=== PATIENT | female | born 2000 | race Caucasian/White ===

== ENCOUNTER 2019-02-06 13:04 | Emergency (ER) | payer BC ==
[2019-02-06 13:22] VITALS: BP 128/74
[2019-02-06] MEDS ORDERED: Acetaminophen TAB* 325 MG PO ONE (13:39)
--- NOTE | 2019-02-06 13:39 | UC ---
UC General HPI - HPI Summary HPI Summary: PT IS C/O A HEADACHE, SORE THROAT AND FEVER SINCE LAST NIGHT. - History of Current Complaint Chief Complaint: UCRespiratory Stated Complaint: FEVER, SINUS PRESSURE, HEADACHE Time Seen by Provider: 02/06/19 13:32 Hx Obtained From: Patient Hx Last Menstrual Period: "last month"; on bcp Onset/Duration: Gradual Onset Timing: Constant Pain Intensity: 6 Associated Signs & Symptoms: Negative: Abdominal Pain, Cough, Diarrhea, Nausea, SOB, Vomiting - Allergy/Home Medications Allergies/Adverse Reactions: Allergies Allergy/AdvReac Type Severity Reaction Status Date / Time No Known Allergies Allergy Verified 02/06/19 13:16 Home Medications: Home Medications Norethindrone-E.estradiol-Iron [Blisovi 24 Fe Tablet] 1 tab DAILY 02/06/19 [ History Confirmed 02/06/19] PMH/Surg Hx/FS Hx/Imm Hx Previously Healthy: Yes - Surgical History Surgical History: None - Family History Known Family History: Positive: Non-Contributory - Social History Occupation: Student Lives: Dormitory/Roommates Alcohol Use: Rare Substance Use Type: Marijuana Smoking Status (MU): Never Smoked Tobacco - Immunization History Most Recent Tetanus Shot: UTD Review of Systems All Other Systems Reviewed And Are Negative: Yes Constitutional: Positive: Fever ENT: Positive: Sore Throat Neurological: Positive: Headache Physical Exam Triage Information Reviewed: Yes Appearance: Well-Appearing Vital Signs: Initial Vital Signs Temp 99.5 F 02/06/19 13:17 Pulse 95 02/06/19 13:17 Resp 16 02/06/19 13:17 BP 128/74 02/06/19 13:17 Pulse Ox 100 02/06/19 13:17 Vital Signs Reviewed: Yes Eyes: Positive: Conjunctiva Clear ENT: Positive: Pharyngeal erythema, TMs normal, Uvula midline. Negative: Nasal congestion, Nasal drainage, Trismus, Muffled voice, Hoarse voice Neck: Positive: Supple, Nontender, Enlarged Nodes @ - Peritonsilar Respiratory: Positive: No respiratory distress Neurological: Positive: Alert Psychological: Positive: Age Appropriate Behavior Skin Exam: Normal Skin: Negative: Rashes Diagnostics - Laboratory Lab Results: rapid strep=negative Course/Dx - Differential Dx - Multi-Symptom Differential Diagnoses: Other - rapid strep=negative. no concern for abscess - Diagnoses Provider Diagnosis: Pharyngitis Discharge ED - Sign-Out/Discharge Documenting (check all that apply): Patient Departure All imaging exams completed and their final reports reviewed: No Studies - Discharge Plan Condition: Stable Disposition: HOME Patient Education Materials: Pharyngitis (ED) Referrals: [facility] [Outside] Additional Instructions: FOLLOW UP IF NOT BETTER IN 5-7 DAYS OR SOONER IF WORSE. - Billing Disposition and Condition Condition: STABLE Disposition: Home
== END 2019-02-06 14:13 | disposition home or self-care (01) ==
LOC: UCCORT 13:04
DX: J02.9 Acute pharyngitis, unspecified (principal)
CPT/HCPCS: 87651; 99202; A9270-GY; G0463

== ENCOUNTER 2019-03-30 18:04 | Emergency (ER) | payer BC ==
[2019-03-30 19:51] VITALS: BP 132/66
--- NOTE | 2019-03-30 20:11 | UC ---
Ear Complaint HPI - HPI Summary HPI Summary: 18 y/o female presents to the urgent care c/o Right ear pain which started 1530 today, decreased hearing. Left ear was clogged yesterday, but it is better today. Rt ear pain is 5/10 radiating to the the Rt side of face and jaw. Pt reports about 1 week ago she developed a common cold w/ sinus congestion w/ yellowish nasal discharge and PND and dry cough. She has been taking Nyquill and Dayquill PO to alleviate symptoms. Pt states subjective low grade fever last night. Pt denies ALVARADO, dizziness,SOB, chest pain, abdominal pain, N/V/D. - History of Current Complaint Chief Complaint: UCEar Stated Complaint: RIGHT EAR PLUGGED Time Seen by Provider: 03/30/19 19:53 Hx Obtained From: Patient Hx Last Menstrual Period: 03/08 ?: No Onset/Duration: Gradual Onset, Lasting Weeks - 1 week w/ sinus pain and yellowish nasal discharge, Still Present, Worse Since - today w/ Rt ear pain, decrease hearing Severity Initially: Mild Severity Currently: Moderate Pain Intensity: 5 - RT ear pain Pain Scale Used: 0-10 Numeric Alleviating Factors: OTC Meds Associated Signs/Symptoms: Positive: Hearing Loss - RT ear, URI Symptoms - Allergies/Home Medications Allergies/Adverse Reactions: Allergies Allergy/AdvReac Type Severity Reaction Status Date / Time No Known Allergies Allergy Verified 03/30/19 19:51 Home Medications: Home Medications Acetaminophen [Acetaminophen Extra Strength] 1,000 mg PO BID PRN 03/30/19 [ History Confirmed 03/30/19] D-Methorphan/PE/Acetaminophen [Vicks Dayquil Liquicaps] 1 - 2 each PO BID PRN [History Confirmed 03/30/19] D-Methorphan/PE/Acetaminophen [Vicks Dayquil Liquicaps] 2 each PO QPM PRN [History Confirmed 03/30/19] PMH/Surg Hx/FS Hx/Imm Hx Previously Healthy: Yes Respiratory History: Asthma - Surgical History Surgical History: None - Family History Known Family History: Positive: Diabetes - Social History Occupation: Student Lives: With Family Alcohol Use: Occasionally Substance Use Type: Marijuana Substance Use Comment - Amount & Last Used: 03/29/19 Smoking Status (MU): Never Smoked Tobacco - Immunization History Most Recent Tetanus Shot: UTD Vaccination Up to Date: Yes Review of Systems All Other Systems Reviewed And Are Negative: Yes Constitutional: Positive: Negative Skin: Positive: Negative Eyes: Positive: Negative ENT: Positive: Ear Ache - RT ear pain, Nasal Discharge - yellowish, Sinus Congestion, Other - moderate PND Respiratory: Positive: Cough - dry Cardiovascular: Positive: Negative Gastrointestinal: Positive: Negative Genitourinary: Positive: Negative Motor: Positive: Negative Neurovascular: Positive: Negative Musculoskeletal: Positive: Negative Neurological: Positive: Headache - mild Psychological: Positive: Negative Is Patient Immunocompromised?: No Physical Exam - Summary Physical Exam Summary: Vitals: reviewed General: Well developed, well-nourished female adolescent patient with NAD. Head and face: Normocephalic and atraumatic, Positive tenderness over the frontal and maxillary sinuses.. Eyes: PERRLA, EOMI x 2. Normal conjunctiva. No eye discharge. ENT: B/L external Ears canals clear. Rt TM injected w/ erythema and mild yellowish drainage, LF TM WNL. Nose: edematous and erythematous nasal mucosa with with yellowish discharge and erythematous mucosa. Pharynx with no erythema, no exudate. Neck: Supple, no JVD, no carotid bruits and no lymphadenopathy. Lungs: clear, no rales, no rhonchi, no wheezes. CVS: RRR, S1 and S2 present no murmurs or gallops appreciated. Abdomen: soft nontender with positive bowel sounds. Extremities: no edema noted. Neuro: WNL. Skin: warm and dry Triage Information Reviewed: Yes Vital Signs: Initial Vital Signs Temp 99 F 03/30/19 19:46 Pulse 91 03/30/19 19:46 Resp 20 03/30/19 19:46 BP 132/66 03/30/19 19:46 Pulse Ox 99 03/30/19 19:46 Ear Complaint Course/Dx - Course Course Of Treatment: 18 y/o female presents to the urgent care c/o Right ear pain which started 1530 today, decreased hearing. Left ear was clogged yesterday, but it is better today. Rt ear pain is 5/10 radiating to the the Rt side of face and jaw. Pt reports about 1 week ago she developed a common cold w/ sinus congestion w/ yellowish nasal discharge and PND and dry cough. She has been taking Nyquill and Dayquill PO to alleviate symptoms. Pt states subjective low grade fever last night. Pt denies ALVARADO, dizziness,SOB, chest pain, abdominal pain, N/V/D. Hx obtained. Pt w/ RT otitis media on examination. Pt given Ibuprofen PO at the clinic by nurse to alleviate otalgia. pt tolerated well medication and pain decrease. Pt Rx Amoxicillin PO. Advised to take Ibuprofen PO 600mg for otalgia. if symptoms do not improve or worsen to return to the urgent care or f/u with her PCP in 3 days for further management. D/C instructions explained. Pt understood and agreed with plan of care. - Differential Dx/Diagnosis Differential Diagnosis/HQI/PQRI: Cerumen Impaction, Otitis Externa, Otitis Media , Perforated TM Provider Diagnosis: Right otitis media Discharge ED - Sign-Out/Discharge Documenting (check all that apply): Patient Departure - D/C home All imaging exams completed and their final reports reviewed: No Studies - Discharge Plan Condition: Stable Disposition: HOME Prescriptions: Amoxicillin PO (*) [Amoxicillin 875 MG (*)] 875 mg PO BID #20 tab Patient Education Materials: Ear Infection (ED) Referrals: [facility] [place] [facility] [Outside] - 3 Days Additional Instructions: 1- Please take the full course of the antibiotic to avoid resistance.Take yogurts w/ probiotics or Culturelle to protect your GI system 2-Please take ibuprofen PO q6-8hrs prn as instructed after meals to alleviate pain and swelling. Increase fluid intake, eat well, rest and avoid strenuous exercise 3- Use saline drops as directed to clear sinuses 3-If symptoms do not improve or worsen please return to the urgent care or f/u with your PCP in 3 days for further evaluation and treatment. - Billing Disposition and Condition Condition: STABLE Disposition: Home
[2019-03-30] MEDS ORDERED: Ibuprofen TAB* 600 MG PO ONE (20:19)
[2019-03-30] MEDS ORDERED: Amoxicillin PO (*) 500 MG CAP PO ONE (20:43)
== END 2019-03-30 20:50 | disposition home or self-care (01) ==
LOC: UCCORT 18:04
DX: H66.91 Otitis media, unspecified, right ear (principal); J45.909 Unspecified asthma, uncomplicated; R05 Cough; R09.89 Other specified symptoms and signs involving the circulatory and respiratory systems
CPT/HCPCS: 99212; A9270-GY; G0463